=== PATIENT | male | born 1985 | race Caucasian/White ===

== ENCOUNTER 2020-07-05 00:34 | Observation (INO) | payer BC ==
[2020-07-05 00:49] VITALS: BMI 28.7
[2020-07-05] MEDS ORDERED: DEXAMETHASONE SOD PHOSPHATE 10 MG/1 ML VIAL IVPUSH ONE (00:51)
[2020-07-05] MEDS ORDERED: ALBUTEROL SO4 2.5/IPRATROPIUM 0.5 INH SOL 3 ML VIAL.NEB. NEB ONE ×2 (00:51→00:55)
[2020-07-05] MEDS ORDERED: FAMOTIDINE 20 MG/50 ML IVPB 20 MG/50 ML MG IVPB ONE (00:51)
[2020-07-05] MEDS ORDERED: SODIUM CHLORIDE 0.9% 500 ML INFUS.BAG IV ONE (00:51)
[2020-07-05] MEDS ORDERED: DEXAMETHASONE SOD PHOSPHATE 10 MG/1 ML VIAL ONE (00:53)
[2020-07-05] MEDS ORDERED: EPINEPHrine 1:1,000 0.3 MG/0.3 ML SYR IM ONE (00:53)
[2020-07-05] MEDS ORDERED: EPINEPHrine/PF 1 MG/1 ML (1:1,000) AMPULE ONE (00:53)
[2020-07-05] MEDS ORDERED: ONDANSETRON 4 MG/2 ML VIAL ONE (01:01)
[2020-07-05] MEDS ORDERED: ONDANSETRON 4 MG/2 ML VIAL IVPB ONE (01:02)
[2020-07-05 01:31] LABS: BASO % 0.3 % (0-2.0); BLOOD UREA NITROGEN 11.5 mg/dL (7-18); CALCIUM 8.7 mg/dL (8.5-10.1); EOS % 1.6 % (0-4.5); HEMATOCRIT 46.3 % (35.4-49); LYMPH % 25.9 % (8-40); MCH 29.9 pg (25.7-33.7); MCHC 34.6 g/dl (32.0-35.9); MEAN CELL VOLUME 86.4 fl (80-96); MEAN PLT VOLUME 9.1 fl (7.5-11.1); MONO % 8.8 % (3.8-10.2); NEUT % 63.4 % (42.8-82.8); PLATELET COUNT 298 K/MM3 (134-434); RBC 5.36 M/mm3 (4.00-5.60); RDW 13.3 % (11.9-15.9)
[2020-07-05 01:32] LABS: ALBUMIN 4.4 g/dl (3.4-5.0)
[2020-07-05 01:36] LABS: BILIRUBIN,TOTAL 0.4 mg/dL (0.2-1); TOT PROT 8.8 g/dl (6.4-8.2)
[2020-07-05] MEDS ORDERED: PROCHLORPERAZINE INJECTION 10 MG/2 ML VIAL IVPB PRN (03:16)
[2020-07-05] MEDS ORDERED: ALBUTEROL SO4 HFA INHALER IH PRN (03:18)
[2020-07-05 05:57] LABS: HEMATOCRIT 41.6 % (35.4-49); HEMOGLOBIN 14.7 GM/dL (11.7-16.9); MCH 30.6 pg (25.7-33.7); MCHC 35.3 g/dl (32.0-35.9); MEAN CELL VOLUME 86.6 fl (80-96); MEAN PLT VOLUME 8.7 fl (7.5-11.1); PLATELET COUNT 260 K/MM3 (134-434); RDW 13.2 % (11.9-15.9); WHITE BLOOD COUNT 14.7 K/mm3 (4.0-10.0)
[2020-07-05 06:16] LABS: CALCIUM 8.2 mg/dL (8.5-10.1)
[2020-07-05 06:17] LABS: BLOOD UREA NITROGEN 11.7 mg/dL (7-18)
[2020-07-05 06:30] VITALS: BP 105/51; TEMP 98.3
[2020-07-05] MEDS ORDERED: FAMOTIDINE 20 MG TABLET ONE (08:37)
[2020-07-05] MEDS ORDERED: methylPREDNISolone NA SUCC 125 MG/2 ML VIAL ONE (08:38)
[2020-07-05] MEDS ORDERED: DEXAMETHASONE 4 MG TABLET (FP) PO ONE (09:35)
[2020-07-05] MEDS ORDERED: methylPREDNISolone NA SUCC 125 MG/2 ML VIAL IVPUSH SCH (10:00)
[2020-07-05] MEDS ORDERED: FAMOTIDINE 20 MG TABLET PO SCH (10:00)
[2020-07-05 11:27] VITALS: PULSE 100
== END 2020-07-05 11:30 | disposition home or self-care (01) ==
LOC: JER 00:34 → UNDOADMOB 00:58 → INTOOBSV 00:58 → JERBED 00:58
PROVIDERS: ADMIT Internal Medicine; ATTEND Internal Medicine
PROC: 3E033GC Introduction of Other Therapeutic Substance into Peripheral Vein, Percutaneous Approach (ICD-10-PCS; principal; 2020-07-05)
PROC: 3E033GC Introduction of Other Therapeutic Substance into Peripheral Vein, Percutaneous Approach (ICD-10-PCS; 2020-07-05)
PROC: 3E033GC Introduction of Other Therapeutic Substance into Peripheral Vein, Percutaneous Approach (ICD-10-PCS; 2020-07-05)
PROC: 3E033GC Introduction of Other Therapeutic Substance into Peripheral Vein, Percutaneous Approach (ICD-10-PCS; 2020-07-05)
PROC: 3E023GC Introduction of Other Therapeutic Substance into Muscle, Percutaneous Approach (ICD-10-PCS; 2020-07-05)
PROC: 3E0F7SF Introduction of Other Gas into Respiratory Tract, Via Natural or Artificial Opening (ICD-10-PCS; 2020-07-05)
DX: T78.09XA Anaphylactic reaction due to other food products, initial encounter (principal)
CPT/HCPCS: 36415; 80048; 80053; 80061; 83036; 83721; 85025; 85027; 93005; 93010; 94640; 96365; 96372; 96375; 99285-25; C9803; G0378; J1100; U0003; U0005